=== PATIENT | female | born 1930 | race Caucasian/White ===

== ENCOUNTER 2018-08-31 13:20 | Observation (INO) | payer MEDICARE ==
[~2018-08-31] VITALS: Ht 167.6 cm; Wt 72.6 kg
[~2018-08-31 13:20] MED LIST: ASPIR 8181 MG PO; BETAPACE80 M1 PO; BUMEX0.5 MG PO; CALCIUM500 M3 PO; DIGOXIN PO; PROTONIX40 M2; Z CALAN PO; Z.0.ASPIRIN CHEW81 M; Z.0.CARVEDILOL12.5 M PO; Z.0.LIPITOR40 MG PO; Z.0.LOSARTAN POTAS10 PO; Z.1.DOXYCYCLINE HY10 PO; Z.1.FISH OIL 1,2001 PO; [UNRECOGNIZED DRUG - OTHER] PO
[2018-08-31] MEDS ORDERED: NITROGLYCERIN 2% OINT 1 GM PKT TOP STA (13:33)
[2018-08-31] MEDS ORDERED: ASPIRIN 81 MG CHEW TAB PO ONE (13:45)
[2018-08-31 13:50] LABS: BASOPHILS # (AUTO) 0.1 (0.0-0.1); BASOPHILS % 1.1 % (0.0-1.0); EOSINOPHILS # (AUTO) 0.2 (0.0-0.4); EOSINOPHILS % 2.5 % (0.0-6.0); HEMATOCRIT 42.3 % (34.2-44.1); HEMOGLOBIN 14.1 g/dL (12.0-16.0); LYMPHOCYTES # (AUTO) 1.6 (1.0-3.2); LYMPHOCYTES % 26.4 % (18.0-39.1); MEAN CORPUSCULAR HEMOGLOBIN 31.3 pg (28-32); MEAN CORPUSCULAR HGB CONC 33.3 g/dL (31-35); MONOCYTES # (AUTO) 0.5 (0.2-0.8); MONOCYTES % 8.2 % (4.4-11.3); NEUTROPHILS # (AUTO) 3.8 (2.1-6.9); NEUTROPHILS % 61.6 % (38.7-80.0); PLATELET COUNT 189 x10e3/uL (140-360); RED CELL DISTRIBUTION WIDTH 13.2 % (11.7-14.4)
[2018-08-31 14:11] LABS: ALANINE AMINOTRANSFERASE 84 IU/L (0-55); ALBUMIN 3.9 g/dL (3.5-5.0); ALBUMIN/GLOBULIN RATIO 1.3 (0.8-2.0); ALKALINE PHOSPHATASE 70 IU/L (40-150); ANION GAP 16.6 mmol/L (8-16); BLOOD UREA NITROGEN 15 mg/dL (7-26); BUN/CREATININE RATIO 20 (6-25); CALCIUM 9.2 mg/dL (8.4-10.2); CARBON DIOXIDE 29 mmol/L (22-29); CHLORIDE 98 mmol/L (98-107); CREATINE KINASE 79 IU/L (29-168); CREATININE, SERUM 0.74 mg/dL (0.57-1.11); EST GLOMERULAR FILTRATION RATE > 60 ML/MIN (60-); GLUCOSE 178 mg/dL (74-118); POTASSIUM 3.6 mmol/L (3.5-5.1); SODIUM 140 mmol/L (136-145)
--- NOTE | 2018-08-31 14:32 | Diagnostic Imaging Report ---
Exam: Head CT without contrast History: Weakness, dizziness, syncope, altered mental status Comparison studies: None Technique: Axial images were obtained from the skull base to the vertex. Coronal and sagittal images reconstructed from the axial data. Dose modulation, iterative reconstruction, and/or weight based adjustment of the mA/kV was utilized to reduce the radiation dose to as low as reasonably achievable. Radiation dose: Total DLP: 921 mGy*cm. Estimated effective dose: DLP x 0.015 Intravenous contrast: None Findings: Scalp: No abnormalities. Bones: No fractures, blastic or lytic lesions. Brain sulci: Mildly prominent. Ventricles: Mild compensatory dilatation. No hydrocephalus. Extra-axial spaces: No masses, no fluid collection. Parenchyma: No mass, acute hemorrhage or acute or chronic cortical vascular insults. A few scattered and mildly confluent-appearing periventricular hypodensities in the supratentorial white matter are nonspecific but most compatible with chronic microvascular ischemic changes. There are small chronic lacunar infarct in the right cerebellum. Sellar/suprasellar region: No abnormalities. Craniocervical junction: Patent foramen magnum. No Chiari one malformation. Incidental findings: Atherosclerotic calcifications in the carotid siphons and left intradural vertebral artery. IMPRESSION: No acute intracranial abnormalities. Chronic findings: 1. Mild generalized volume loss. 2. Mild microvascular ischemic changes. 3. Small cerebellar lacunar infarct. Signed by: Dr. Yakov Drew M.D. on 08/31/2018 2:29 PM
[2018-08-31 14:38] LABS: INR 1.03; PROTHROMBIN TIME 14.4 seconds (11.9-14.5)
[2018-08-31 14:39] LABS: PARTIAL THROMBOPLASTIN TIME 26.3 seconds (23.8-35.5)
--- NOTE | 2018-08-31 15:29 | Diagnostic Imaging Report ---
EXAMINATION: CHEST SINGLE (PORTABLE) INDICATION: Chest pain COMPARISON: None FINDINGS: TUBES and LINES: Left sided dual chamber pacemaker with leads overlying the right atrium and right ventricle. LUNGS: Lungs are well inflated. There is no evidence of pneumonia or pulmonary edema. Hazy opacity overlying the lower lung zones likely represents overlying soft tissue. Mild patchy left basilar opacity, likely scarring. PLEURA: No pleural effusion or pneumothorax. HEART AND MEDIASTINUM: The cardiomediastinal silhouette is unremarkable. There are atherosclerotic calcifications within the aorta. BONES AND SOFT TISSUES: No acute osseous lesion. Soft tissues are unremarkable. UPPER ABDOMEN: No free air under the diaphragm. IMPRESSION: No acute radiographic abnormality. Signed by: Dr. Jessica Crowley MD on 08/31/2018 3:26 PM
[2018-08-31] MEDS ORDERED: SODIUM CHLORIDE 0.9% 1000ML 1,000 ML IV SCH (16:15)
[2018-08-31] MEDS ORDERED: DEXTROSE 50% SYRINGE 50 ML IV PRN (16:15)
[2018-08-31] MEDS ORDERED: ONDANSETRON HCL INJ 2 MG/ML VIAL IV PRN (16:15)
--- OUTSIDE RECORDS SUMMARY | 2018-08-31 16:21 | XMS REPORT ---
Author [facility] Address Unknown Phone Unavailable Care Team Providers Care Lot Porter Name Role Phone Rosita CHARLES Unavailable Unavailable Problems This patient has no known problems. Allergies, Adverse Reactions, Alerts This patient has no known allergies or adverse reactions. Medications This patient has no known medications. Results Test Description Test Time Test Comments Text Results Atomic Results Result Comments CHEST SINGLE (PORTABLE) 2018-08-31 15:22:00 [place] [address] Patient Name: NATHAILA LYNN MR #: [id number] : 1930 Age/Sex: 87/F Req #: [id number] Adm Physician: Ordered by: WING CHARLES MD Report #: [id number] Location: ER Room/Bed: Procedure: [id number] DX/CHEST SINGLE (PORTABLE) Exam Date: 08/31/18 Exam Time: 1410 REPORT STATUS: Signed EXAMINATION: CHEST SINGLE (PORTABLE) INDIC ATION: Chest pain COMPARISON: None FINDINGS: TUBES and LINES: Left sided dual chamber pacemaker with leads overlying the right atrium and right ventricle. LUNGS: Lungs are well inflated. There is no evidence of pneumonia or pulmonary edema. Hazy opacity overlying the lower lung zones likely represents overlying soft tissue. Mild patchy left basilar opacity, likely scarring. PLEURA: No pleural effusion or pneumothorax. HEART AND MEDIASTINUM: The cardiomediastinal silhouette is unremarkable. There are atherosclerotic calcifications within the aorta. BONES AND SOFT TISSUES: No acute osseous lesion. Soft tissues are unremarkable. UPPER ABDOMEN: No free air under the diaphragm. IMPRESSION: No acute radiographic abnormality. Signed by: Dr. Rayna Marcano MD on 08/31/2018 3:26 PM Dictated By: RAYNA MARCANO MD 1526 Transcribed By: LAKHWINDER on 08/31/18 1526 COPY TO: WING CHARLES MD CT BRAIN WO 2018-08-31 14:26:00 [place] [address] Patient Name: NATHALIA LYNN MR #: [id number] : 1930 Age/Sex: 87/F Req #: [id number] Adm Physician: Ordered by: WING CHARLES MD Report #: [id number] Location: ER Room/Bed: Procedure: [id number] CT/CT BRAIN WO Exam Date: Exam Time: REPORT STATUS: Signed Exam: Head CT without contrast History: Weakness, dizziness, syncope, alt ered mental status Comparison studies: None Technique: Axial images were obtained from the skull base to the vertex. Coronal and sagittal images reconstructed from the axial data. Dose modulation, iterative reconstruction, and/or weight based adjustment of the mA/kV was utilized to reduce the radiation dose to as low as reasonably achievable. Radiation dose: Total DLP: 921 mGy*cm. Estimated effective dose: DLP x 0.015 Intravenous contrast: None Findings: Scalp: No abnormalities. Bones: No fractures, blastic or lytic lesions. Brain sulci: Mildly prominent. Ventricles: Mild compensatory dilatation. No hydrocephalus. Extra-axial spaces: No masses, no fluid collection. Parenchyma: No mass, acute hemorrhage or acute or chronic cortical vascular insults. A few scattered and mildly confluent-appearing periventricular hypodensities in the supratentorial white matter are nonspecific but most compatible with chronic microvascular ischemic changes. There are small chronic lacunar infarct in the right cerebellum. Sellar/suprasellar region: No abnormalities. Craniocervical junction: Patent foramen magnum. No Chiari one malformation. Incidental findings: Atherosclerotic calcifications in the carotid siphons and left intradural vertebral artery. IMPRESSION: No acute intracranial abnormalities. Chronic findings: 1. Mild generalized volume loss. 2. Mild microvascular ischemic changes. 3. Small cerebellar lacunar infarct. Signed by: Dr. Lupe Drew M.D. on 08/31/2018 2:29 PM Dictated By: LUPE DREW MD 1426 Transcribed By: LAKHWINDER on 08/31/18 1424 COPY TO: WING CHARLES MD
[2018-08-31] MEDS: INSULIN REGULAR, HUMAN 100 UNIT/1 ML 3ML VIAL SQ SCH ×2 (16:30→21:41)
[2018-08-31 19:28] LABS: COLOR,URINE YELLOW (YELLOW)
[2018-08-31 19:29] LABS: BILIRUBIN,URINE NEGATIVE (NEGATIVE); CLARITY,URINE HAZY (CLEAR); KETONES,URINE TRACE (NEGATIVE); LEUKOCYTE ESTERASE ,URINE 2+ (NEGATIVE); NITRITE,URINE NEGATIVE (NEGATIVE); PROTEIN,URINE DIPSTICK NEGATIVE (NEGATIVE); URINE UROBILINOGEN 0.2 mg/dL (0.2 - 1)
[2018-08-31 19:37] LABS: AMORPHOUS SEDIMENT,URINE MODERATE (FEW); EPITHELIAL CELLS,URINE FEW /LPF
[2018-08-31 20:30] VITALS: BP 133/63
[2018-08-31 21:52] LABS: CREATINE KINASE MB 3.6 ng/mL (0-5.0)
[2018-08-31 22:46] VITALS: BP 133/63
[2018-08-31 22:53] VITALS: BP 133/63
[2018-08-31 22:56] VITALS: BP 133/63
[2018-09-01] VITALS (9 sets, daily range): BP systolic 111–153; BP diastolic 55–72
[2018-09-01 05:55] LABS: BASOPHILS % 0.8 % (0.0-1.0); EOSINOPHILS # (AUTO) 0.3 (0.0-0.4); EOSINOPHILS % 4.7 % (0.0-6.0); HEMATOCRIT 38.9 % (34.2-44.1); HEMOGLOBIN 12.9 g/dL (12.0-16.0); LYMPHOCYTES # (AUTO) 2.1 (1.0-3.2); LYMPHOCYTES % 39.8 % (18.0-39.1); MEAN CORPUSCULAR HEMOGLOBIN 31.5 pg (28-32); MEAN CORPUSCULAR HGB CONC 33.2 g/dL (31-35); MEAN CORPUSCULAR VOLUME 94.9 fL (81-99); MONOCYTES # (AUTO) 0.6 (0.2-0.8); MONOCYTES % 11.1 % (4.4-11.3); NEUTROPHILS # (AUTO) 2.3 (2.1-6.9); NEUTROPHILS % 43.4 % (38.7-80.0); PLATELET COUNT 165 x10e3/uL (140-360); RED CELL DISTRIBUTION WIDTH 13.2 % (11.7-14.4)
[2018-09-01 05:59] LABS: CREATINE KINASE MB 3.5 ng/mL (0-5.0)
[2018-09-01] MEDS ORDERED: CEFTRIAXONE SOD 1 GM VIAL IV SCH (06:15)
[2018-09-01] MEDS ORDERED: ACETAMINOPHEN 325 MG TAB PO PRN (06:30)
[2018-09-01] MEDS ORDERED: METOPROLOL TARTRATE INJ 1 MG/ML VIAL IV PRN (06:30)
[2018-09-01 06:33] LABS: ALANINE AMINOTRANSFERASE 66 IU/L (0-55); ALBUMIN 3.3 g/dL (3.5-5.0); ALBUMIN/GLOBULIN RATIO 1.3 (0.8-2.0); ALKALINE PHOSPHATASE 58 IU/L (40-150); ANION GAP 15.3 mmol/L (8-16); BLOOD UREA NITROGEN 11 mg/dL (7-26); BUN/CREATININE RATIO 17 (6-25); CALCIUM 8.4 mg/dL (8.4-10.2); CARBON DIOXIDE 27 mmol/L (22-29); CHLORIDE 100 mmol/L (98-107); CHOL/HDL RATIO 5.5 (3.0-3.6); CHOLESTEROL 192 MD/DL (0-199); CREATININE, SERUM 0.64 mg/dL (0.57-1.11); EST GLOMERULAR FILTRATION RATE > 60 ML/MIN (60-); GLUCOSE 153 mg/dL (74-118); HDL CHOLESTEROL 35 MG/DL (40-60); LDL CHOLESTEROL 132 MG/DL (60-130); POTASSIUM 3.3 mmol/L (3.5-5.1); SODIUM 139 mmol/L (136-145); TRIGLYCERIDES 125 MG/DL (0-149)
[2018-09-01] MEDS ORDERED: METFORMIN HCL500 MG PO (06:41)
[2018-09-01] MEDS ORDERED: LOSARTAN-HCTZ1 EACH PO (06:41)
[2018-09-01] MEDS ORDERED: XARELTO10 MG PO (06:41)
[2018-09-01] MEDS ORDERED: ISOSORBIDE MONO20 MG PO (06:41)
[2018-09-01] MEDS ORDERED: DEXTROSE 50% SYRINGE 50 ML IV PRN (07:00)
[2018-09-01] MEDS: INSULIN LISPRO 100 UNIT/1 ML 3ML VIAL SQ SCH ×4 (07:30→20:47)
[2018-09-01] MEDS: HYDROCHLOROTHIAZIDE 25 MG TAB PO SCH (08:55)
[2018-09-01] MEDS: FAMOTIDINE 20 MG TAB PO SCH ×2 (08:55→16:27)
[2018-09-01] MEDS: CEFTRIAXONE SOD 1 GM VIAL IV SCH ×2 (08:55→20:43)
[2018-09-01] MEDS: LOSARTAN POTASSIUM 25 MG TAB PO SCH (08:55)
[2018-09-01] MEDS: ISOSORBIDE MONONITRATE 20 MG TAB PO SCH ×2 (08:56→16:28)
[2018-09-01] MEDS: RIVAROXABAN 15 MG TABLET PO SCH (08:56)
[2018-09-01] MEDS: DIGOXIN 0.25 MG TAB PO SCH (08:56)
[2018-09-01] MEDS ORDERED: ASPIRIN 81 MG ENTERIC COATED PO SCH (09:00)
[2018-09-01] MEDS ORDERED: ISOSORBIDE MONONITRATE 20 MG TAB PO SCH ×2 (09:00)
[2018-09-01] MEDS ORDERED: VERAPAMIL HCL 80 MG TAB PO SCH (09:00)
[2018-09-01] MEDS ORDERED: SOTALOL HCL 80 MG TAB PO SCH (09:00)
[2018-09-01] MEDS ORDERED: ISOSORBIDE DINITRATE 20 MG TAB PO SCH (09:00)
[2018-09-01] MEDS ORDERED: ASPIRIN 81 MG CHEW TAB PO SCH (09:00)
[2018-09-01] MEDS ORDERED: METFORMIN HCL 500 MG TAB PO SCH (09:00)
[2018-09-01] MEDS ORDERED: NON-FORMULARY MEDICATION (Losartan/Hydrochlorothiazide (Losartan-Hctz 50-12.5 Mg Tab) 1 TA PO SCH (09:00)
[2018-09-01] MEDS ORDERED: NON-FORMULARY MEDICATION (Atorvastatin Calcium (Lipitor) 40 MG) PO SCH (09:00)
[2018-09-01] MEDS ORDERED: RIVAROXABAN 10 MG TABLET PO SCH (09:00)
[2018-09-01] MEDS ORDERED: POTASSIUM CHLORIDE 20 MEQ TAB CR PO STA (09:31)
[2018-09-01] MEDS ORDERED: ATORVASTATIN 40 MG TAB PO SCH (21:00)
[2018-09-02] VITALS (9 sets, daily range): BP systolic 117–169; BP diastolic 57–83
--- NOTE | 2018-09-02 01:03 | Consultation ---
DATE OF CONSULTATION: September 01, 2018 Patient was admitted for Dr. Laguna on the 31 of August and seen in consultation on the 01 of September. HISTORY: Ms. Dior who just turned 88 years older today on the 01 of September, was brought to the emergency room by her family after she had episodes of unresponsiveness and syncope. The patient does not recall any of these events, and the history was mostly taken from the patient's daughter, who was attending the patient. The daughter indicates that Ms. Diro was helping her with laundry when she was sitting down and all of a sudden she became unresponsive, this lasted only for a few minutes and since it happened in the past, no further action was taken. However, while she was trying to communicate with her mother, she noted that she fell backwards on the sofa and was unresponsive for about 45 minutes. After the EMS has evaluated, the patient then was taken to the emergency room. The patient stated that she had no chest pain or shortness of breath or dizziness. However, her pacemaker was feeling funny. The patient was unable to explain her feelings any further, however, she was putting her hand across her chest indicating something may have caused her feeling, but again denying any chest pain. Since the patient has been hospitalized, no further events have occurred. The patient has been on telemetry, which mainly showed atrial fibrillation with demand ventricular pacing. The patient's pacemaker was implanted in April of 2012. PAST HISTORY: Reveals that she has hypertensive cardiovascular disease, sick sinus syndrome with lisa-tachy arrhythmia and permanent pacemaker, and for the last 6 months has been in chronic atrial fibrillation. The patient has refused any cardioversion or correction to restore her sinus rhythm. She also has hyperlipidemia mainly with elevated LDL and low HDL. She has mild calcific coronary artery disease as documented on previous cardiac catheterization; mitral valve prolapse; left renal artery stenosis; history of colon cancer; breast implants; macular degeneration, more on the right than on the left; diabetes mellitus, however, she is not on any diabetic medication. ALLERGIES: PATIENT HAS COUGH WITH YENY INHIBITORS. SOCIAL HISTORY: Negative. FAMILY HISTORY: Positive for hypertension. REVIEW OF SYSTEMS: The remainder of systems reviewed, revealed patient denies any headache or sore throat. The patient denies any episodes of sweating. She denies any abdominal pain, nausea, vomiting, diarrhea, constipation, melena, hematemesis. Patient denies any leg weakness. PHYSICAL EXAMINATION: VITAL SIGNS: Reveals a blood pressure 130/72. The patient is afebrile. NECK: Carotid pulses are present. CHEST: Clear to auscultation. CARDIOVASCULAR SYSTEM: Reveals a normal apical impulse. The rhythm is irregularly irregular. There is a rate of 88 per minute. There is no S3. There is no rub. ABDOMEN: Soft. There is no tenderness or organomegaly. EXTREMITIES: Pulses are present, but diminished. There is evidence of varicosities. There is no peripheral edema. NEUROLOGIC: Does not reveal any motor defect. Electrocardiogram shows no evidence of myocardial infarction or any acute changes. Patient's chest x-ray showed some pulmonary scarring. Brain scan shows calcification of the intracranial circulation particularly the left vertebral artery and an old lacunar stroke is also evident, but no acute changes. LABORATORY DATA: Showed some elevated liver enzymes and bilirubin. There is also possible evidence of urinary tract infection and mild hypokalemia. Cardiac enzymes have been normal. IMPRESSION: 1. Fainting and syncopal spells. 2. Permanent pacemaker. 3. Chronic atrial fibrillation. 4. Mild calcific coronary disease. 5. Hypertension. 6. Diabetes mellitus. 7. Dementia and altered mental status. 8. Possible urinary tract infection and abnormal liver studies, which needs to be further evaluated. I would be glad to review the ultrasound of the carotid arteries as ordered and will evaluation of the patient's pacemaker, which has not been tested since March of this year. Thank you very much for letting me see this very nice patient. Job#: [id number]
[2018-09-02 05:04] LABS: BASOPHILS # (AUTO) 0.1 (0.0-0.1); BASOPHILS % 0.9 % (0.0-1.0); EOSINOPHILS # (AUTO) 0.3 (0.0-0.4); EOSINOPHILS % 4.5 % (0.0-6.0); HEMATOCRIT 39.8 % (34.2-44.1); HEMOGLOBIN 12.9 g/dL (12.0-16.0); LYMPHOCYTES % 35.2 % (18.0-39.1); MEAN CORPUSCULAR HGB CONC 32.4 g/dL (31-35); MEAN CORPUSCULAR VOLUME 95.7 fL (81-99); MONOCYTES # (AUTO) 0.6 (0.2-0.8); MONOCYTES % 10.9 % (4.4-11.3); NEUTROPHILS # (AUTO) 2.7 (2.1-6.9); NEUTROPHILS % 48.3 % (38.7-80.0); PLATELET COUNT 159 x10e3/uL (140-360); RED BLOOD COUNT 4.16 x10e6/uL (3.6-5.1); RED CELL DISTRIBUTION WIDTH 13.2 % (11.7-14.4)
[2018-09-02 05:26] LABS: ANION GAP 12.7 mmol/L (8-16); BLOOD UREA NITROGEN 9 mg/dL (7-26); BUN/CREATININE RATIO 13 (6-25); CALCIUM 8.5 mg/dL (8.4-10.2); CARBON DIOXIDE 30 mmol/L (22-29); CHLORIDE 99 mmol/L (98-107); EST GLOMERULAR FILTRATION RATE > 60 ML/MIN (60-); GLUCOSE 151 mg/dL (74-118); POTASSIUM 3.7 mmol/L (3.5-5.1); SODIUM 138 mmol/L (136-145)
[2018-09-02] MEDS: INSULIN LISPRO 100 UNIT/1 ML 3ML VIAL SQ SCH ×4 (07:30→20:22)
[2018-09-02] MEDS ORDERED: ceftin PO (07:45)
[2018-09-02] MEDS: CEFTRIAXONE SOD 1 GM VIAL IV SCH ×2 (08:20→20:21)
[2018-09-02] MEDS: FAMOTIDINE 20 MG TAB PO SCH ×2 (08:20→16:30)
[2018-09-02] MEDS: DIGOXIN 0.25 MG TAB PO SCH (08:21)
[2018-09-02] MEDS: LOSARTAN POTASSIUM 25 MG TAB PO SCH (08:21)
[2018-09-02] MEDS: HYDROCHLOROTHIAZIDE 25 MG TAB PO SCH (08:21)
[2018-09-02] MEDS: ISOSORBIDE MONONITRATE 20 MG TAB PO SCH ×2 (08:21→17:00)
[2018-09-02] MEDS: RIVAROXABAN 15 MG TABLET PO SCH (09:00)
[2018-09-02] MEDS ORDERED: BACITRACIN 50,000 UNIT VIAL ONE (15:06)
[2018-09-02] MEDS ORDERED: MIDAZOLAM HCL 2 MG/2 ML VIAL ONE (15:06)
[2018-09-02] MEDS ORDERED: FENTANYL CITRATE/PF 100MCG/2 ML INJ ONE (15:06)
[2018-09-02] MEDS ORDERED: LIDOCAINE HCL 1% LOCAL INJ 20 ML VIAL ONE (15:07)
[2018-09-02] MEDS ORDERED: SODIUM CHLORIDE 0.9% 500ML 1,000 ML ONE (15:07)
[2018-09-02] MEDS ORDERED: SODIUM CHLORIDE 0.9% 1000ML 1,000 ML ONE (15:15)
[2018-09-02] MEDS ORDERED: VANCOMYCIN 1GM/NS 250 ML 0 ML ONE (15:15)
[2018-09-02] MEDS ORDERED: LABETALOL HCL 0 ML ONE (15:59)
[2018-09-02] MEDS ORDERED: HYDROCODONE/APAP 5MG-325MG TAB PO PRN (17:30)
[2018-09-03 04:57] VITALS: BP 147/72
[2018-09-03 07:28] VITALS: BP 166/75
[2018-09-03 07:38] VITALS: BP 166/75
[2018-09-03] MEDS: INSULIN LISPRO 100 UNIT/1 ML 3ML VIAL SQ SCH ×2 (07:54→11:30)
[2018-09-03] MEDS: RIVAROXABAN 15 MG TABLET PO SCH (08:55)
[2018-09-03] MEDS: DIGOXIN 0.25 MG TAB PO SCH (08:55)
[2018-09-03] MEDS: ISOSORBIDE MONONITRATE 20 MG TAB PO SCH (08:55)
[2018-09-03] MEDS: LOSARTAN POTASSIUM 25 MG TAB PO SCH (08:55)
[2018-09-03] MEDS: FAMOTIDINE 20 MG TAB PO SCH (08:55)
[2018-09-03] MEDS: CEFTRIAXONE SOD 1 GM VIAL IV SCH (08:55)
[2018-09-03] MEDS: HYDROCHLOROTHIAZIDE 25 MG TAB PO SCH (08:55)
[2018-09-03 11:37] VITALS: BP 111/55
--- NOTE | 2018-09-03 12:53 | Operative Report ---
DATE OF PROCEDURE: September 02, 2018 The patient was admitted to Dr. Laguna. DIAGNOSES 1. Permanent pacemaker end of life. 2. Syncope. 3. Chronic atrial fibrillation. PROCEDURE: Replacement of pacemaker generator with model [place] HERZOG DR. Model number is [id number]. DESCRIPTION OF PROCEDURE: After the usual prepping and draping and applying local anesthetic along with moderate sedation, an incision was made over the old pacemaker generator, which was carefully dissected out and removed from the pocket. The atrial and ventricular leads were disconnected. The ventricular lead was tested. The atrial lead was not tested since the patient is in chronic atrial fibrillation, and the pacemaker had been reprogrammed to VVI in the past. After adequate thresholds were obtained, the pocket was inspected for any bleeding. After adequate hemostasis was achieved, the pocket was lavaged with antibiotic solution. A new pacemaker generator was then connected to the atrial and ventricular electrodes and positioned in the old pocket, which was closed with continuous suture. Skin was closed with interrupted sutures. Dressing was applied. The patient returned to her room in stable condition. There were no complications. The procedure was well tolerated. The patient did receive moderate sedation with 1 mg of Versed and 25 mcg of fentanyl on 2 occasions because of hypertension. The patient also received 10 mg of labetalol IV in the beginning of the procedure. The threshold of the ventricular electrode revealed sensitivity and R-wave of 1 mV. The measurement was done with the bipolar mode. Resistance was 360 ohms. Stimulation threshold was 0.9 volts, and the pulse width was 0.4 milliseconds. The device was programmed to an R-wave sensitivity of 3.6 mV unipolar. The pacemaker also was programmed to VVI with a pacing rate of 60. The maximal sensor rate is 120. The patient is enrolled in the transtelephonic monitoring using the [employer]. Job#: [id number]
--- NOTE | 2018-09-04 08:15 | Discharge Summary ---
ADMISSION DIAGNOSES 1. Hypertension. 2. Hyperlipidemia. 3. Atrial fibrillation. 4. Type 2 diabetes. DISCHARGE DIAGNOSES 1. Hypertension. 2. Hyperlipidemia. 3. Atrial fibrillation. 4. Type 2 diabetes. 5. Ruled out cerebrovascular accident. 6. Status post permanent pacemaker replacement. HISTORY: The patient has a history of hypertension, hyperlipidemia and atrial fibrillation. FAMILY HISTORY: The patient denies any family history. SOCIAL HISTORY: The patient admits to drinking wine occasionally. She said she quit smoking about 10 to 15 years ago. . According to ER report, the patient on admission. On admission, the patient had a chest x-ray which was negative. CT of the brain showed no acute abnormalities. Echo showed an EF of 40% to 45%. EKG showed demand pacer. Urine culture was contaminated, although a UA indicated infection. The patient was started on IV Rocephin and was switched to p.o. Rocephin at the time of discharge. Per telemetry, the patient's pacemaker was not capturing, so Dr. Nj Graves was consulted and replaced the pacemaker. The patient tolerated the procedure well, and is pacing . Rocephin 500 b.i.d. x 5 days. The patient will follow up with primary care physician in one to two weeks. . The patient and the family understand the discharge instructions. The patient is afebrile. Dictated by: Mirela Cain NP CORI SMITH MD Job#: [id number]
== END 2018-09-03 12:05 | disposition home or self-care (01) ==
LOC: ER 13:20 → ERHOLD 16:18 → IMCU 20:06
PROVIDERS: ADMIT Internal Medicine; ATTEND Internal Medicine
DX: R55 Syncope and collapse (principal); I10 Essential (primary) hypertension; E11.9 Type 2 diabetes mellitus without complications; I48.2 Chronic atrial fibrillation; F03.90 Unspecified dementia, unspecified severity, without behavioral disturbance, psychotic disturbance, mood disturbance, and anxiety; Z95.810 Presence of automatic (implantable) cardiac defibrillator; Z82.49 Family history of ischemic heart disease and other diseases of the circulatory system; N39.0 Urinary tract infection, site not specified; E78.5 Hyperlipidemia, unspecified; I25.10 Atherosclerotic heart disease of native coronary artery without angina pectoris; Z87.891 Personal history of nicotine dependence; T82.111A Breakdown (mechanical) of cardiac pulse generator (battery), initial encounter
CPT/HCPCS: 33228; 36415 ×4; 70450; 71045; 80048; 80053 ×2; 80061; 81001; 82140; 82550 ×2; 82553 ×2; 82948 ×4; 83036; 83735; 83880; 84484 ×2; 85025 ×3; 85610; 85730; 87086; 93005 ×2; 93306; 93880; 96372 ×2; 97110; 97116 ×2; 97161; 99284; C1785; G0378 ×4; G8978; G8979; J0696 ×3; J2001; J2250; J7030 ×2; J7040; J3370